=== PATIENT | female | born 1990 | race Caucasian/White ===

== ENCOUNTER 2019-03-15 14:55 | Inpatient (IN) | payer BC ==
[~2019-03-15] VITALS: Ht 172.7 cm; Wt 116.0 kg
[2019-03-15 15:17] VITALS: Ht 172.7 cm; Wt 116.0 kg
[2019-03-15 15:18] VITALS: BP 137/88; PULSE 88; RESP 18
--- NOTE | 2019-03-15 20:10 | HP ---
Date/Time of Note Date/Time of Note DATE: 03/15/19 TIME: 20:07 OB - History Hx of Present Chief Complaint: elevated BP in NST clinic Estimated Due Date: Apr 08, 2019 : 2 Para: 1 Spontaneous : 0 Therapeutic : 0 Care: Good Care Ultrasounds: Normal mid trimester US Obstetrical Complications: None Medical Complications: None Past Family/Social History * Past Medical, Surgical, Family and Obstetric Histories reviewed from chart. GBS Status: Positive OB Admission Exam Vital Signs Vital Signs Vital Signs Date Temp Pulse Resp B/P (MAP) Pulse Ox O2 O2 Flow FiO2 Time Delivery Rate 03/15/19 98.0 88 18 137/88 Room Air 15:18 (104) Physical Exam HEENT: WNL Heart: Rhythm Normal Lungs: Clear, Equal Abdomen: WNL Extremities: Normal Reflexes: Normal Heart Rate: 120's Accelerations: Accelerations Present Decelerations: No Decelerations Varibility: Moderate Last 72 hours Lab Results CBC & BMP 03/15/19 15:35 Liver Function Test 03/15/19 15:35 Alanine Aminotransferase (ALT/SGPT) 16 Albumin 3.5 Alkaline Phosphatase 66 Aspartate Amino Transf (AST/SGOT) 17 Direct Bilirubin 0.00 Total Protein 6.7 OB Assessment/Plan Reason for admission: other Other Assessment: R/O preeclampsia Plan: Other Other plan: Admit PIH panel 24 hour urine collection Monitor BP JUSTIN THOMAS MD Mar 15, 2019 20:10
--- NOTE | 2019-03-16 15:53 | QN ---
Documentation Comment No complaint Afebrile VSS Strip Reactive Await result of 24 hour urine JUSTIN THOMAS MD Mar 16, 2019 15:52
--- NOTE | 2019-03-17 20:41 | QN ---
Documentation Comment No complaint Afebrile VSS 24 hour urine protein 367 mg Strip Reactive Preeclampsia Plan: Repeat on 03/18/2019. JUSTIN THOMAS MD Mar 17, 2019 20:41
[2019-03-18] MEDS ORDERED: PNV11TAB PO (08:43)
[2019-03-18] MEDS ORDERED: OXYTOCIN 30 UNITS/LR 500 ML IV SCH ×2 (09:00→23:14)
[2019-03-18] MEDS ORDERED: CEFAZOLIN 2 GM/50 ML (PMX) 50 ML IVPB SCH (09:00)
[2019-03-18] MEDS ORDERED: CARBOPROST 250 MCG INJ IM PRN ×2 (09:00→23:30)
[2019-03-18] MEDS ORDERED: MISOPROSTOL 200 MCG TAB PR PRN ×2 (09:00→23:30)
[2019-03-18] MEDS ORDERED: METHYLERGONOVINE 0.2 MG INJ IM PRN (09:00)
[2019-03-18] MEDS ORDERED: OXYTOCIN 30 UNITS/LR 500 ML IV PRN ×2 (09:00→23:30)
[2019-03-18] MEDS: LACTATED RINGER'S 1,000 ML IV SCH ×2 (10:36→16:58)
[2019-03-18] MEDS ORDERED: AZITHROMYCIN 500MG/NS (PMX) 250 ML IV SCH (16:30)
[2019-03-18] MEDS ORDERED: morphine SULFATE/PF (10 MG/10 ML) INJ ONE (18:19)
[2019-03-18] MEDS ORDERED: ONDANSETRON 4 MG INJ ONE (18:19)
[2019-03-18] MEDS ORDERED: OXYTOCIN 10 UNIT INJ ONE (18:19)
[2019-03-18] MEDS ORDERED: FENTAnyl 50 MCG/ML VIAL ONE ×2 (19:01→19:15)
--- NOTE | 2019-03-18 20:12 | OPR ---
Operative Report Planned Procedure Procedure date Mar 18, 2019 Procedure(s) Repeat low transverse Performed by Justin Thomas MD Epic Cupid Analyst: ELYSE CERVANTES MD Anesthesiologist: FAZAL CORCORAN MD Pre-procedure diagnosis 37 weeks, previous and preeclampsia [id number] Anesthesia Type: [id number] spinal Post-Procedure Post-procedure diagnosis Same Findings Live Baby, Apgars 8 and 9 Estimated Blood Loss: other (700 ml) Specimen(s) Placenta Grafts/Implant(s) none Complication(s) none Pt Condition post procedure: stable Disposition: PACU Procedure Description After spinal anesthesia had been dosed and tested, the patient was placed supine on the Operating Room table and prepped and draped in the usual sterile fashion for a section. A Pfannenstiel incision was made through the abdomen and carried down to the level of the fascia. The fascia was incised transversely and then the rectus muscle was dissected off the fascia and split bluntly in the midline. The peritoneum was the entered bluntly. The bladder flap was created and then a low segment transverse incision was made with a knife on the uterus until the amniotic fluid was encountered. The incision was widened with bandage scissors. A hand was inserted elevating the vertex and then the head delivered with assistance of fundal pressure.. The nares and oropharynx were bulb suctioned, and the remainder of the infant was delivered out of the maternal abdomen. . The cord was doubly clamped and cut, and the infant handed off to the awaiting resuscitation team who was present for delivery. The placenta was then manually extracted and the interior uterus was cleaned with a dry lap sponge. The uterus was exteriorized, and the incision of the uterus closed with a running interlocking stitch of Monocryl suture. The uterus was replaced in the maternal abdomen. The abdomen was cleared of clots. The peritoneum was closed with 2-0 Vicryl. The fascia was closed with a running suture of #1 Vicryl suture meeting in the midline. The subcutaneous tissue was made hemostatic with Bovie cautery, and the skin approximated using noemi. The patient tolerated the procedure well. All sponge and instrument counts were correct. She was taken to the recovery room in stable condition. JUSTIN THOMAS MD Mar 18, 2019 20:12
[2019-03-18] MEDS ORDERED: NALOXONE (0.4 MG/ML) INJ IV PRN (20:30)
[2019-03-18] MEDS ORDERED: ONDANSETRON 4 MG INJ IV PRN (20:30)
[2019-03-18] MEDS ORDERED: DIPHENHYDRAMINE 50 MG INJ IV PRN (20:30)
[2019-03-18] MEDS ORDERED: morphine 2 MG INJ IV PRN (20:30)
[2019-03-18] MEDS ORDERED: LACTATED RINGER'S 1,000 ML IV SCH (23:14)
[2019-03-18] MEDS ORDERED: OXYCODONE/ACETAMINOPHEN (5/325) TAB PO PRN (23:30)
[2019-03-18] MEDS ORDERED: LANOLIN HPA 1 PKT TOP PRN (23:30)
[2019-03-19] VITALS: BP 132/63; PULSE 78; RESP 18
[2019-03-19 05:54] VITALS: BP 115/73; PULSE 83; RESP 20
[2019-03-19 07:30] VITALS: BP 113/72; PULSE 80; RESP 18
[2019-03-19] MEDS: SENNA/DOCUSATE NA (8.6MG/50MG) TAB PO SCH ×2 (11:31→21:35)
[2019-03-19] MEDS: KETOROLAC 30 MG INJ IV PRN ×2 (11:50→17:48)
[2019-03-19 12:00] VITALS: BP 110/72; PULSE 82; RESP 16
--- NOTE | 2019-03-19 15:01 | NSTRPT ---
NST Information Datetime Report Generated by CPN: 03/19/2019 15:01 Datetime: 03/15/2019 13:08 NST Information EGA: 36.4 Test Number: 7 Time on Monitor: 03/15/2019 13:44 Time off Monitor: 03/15/2019 14:10 NST Duration (Min): 26 Reason for NST: Other Reason for NST Other: Marginal cord insertion Test and Monitor Explained: Monitor Explained; Test Explained; Verbalized Understanding Pulse: 101 Resp: 18 SBP: 122 DBP: 82 Test Evaluation NST Interventions: Reposition Patient NST Interventions Other: RN had to hold US continuously to obtain tracing 1347 reposition pt to m aternal left Patient States Movement: Present Contraction Frequency: none FHR Baseline : 125 Variability: Moderate 6-25bpm Accelerations: 15X15 Decelerations: None FHR Category: Category I NST Results: Reactive Provider Notified: Dr Stringer _ Dr Gibran mehta BPs _ EAN Comments: To u/s EAN 25.7 cm BREECH EAN 03/13 was 18.9 [address] Delshad re serial BP readings-baseline BP 09/06 was 119/74. Repeat BPS in NST 129/84, 138/89, 156/86. Pt denies swelling, ARRIAZA, blurred vision, epigastric pain. Orders received to send pt to triage. Report to Amaya Almanza RN _ records _ preliminary US rep ort faxed to triage. Electronically Signed By E-Signature: with User ID: [id number] Datetime: 03/12/2019 09:09 NST Information EGA: 36.1 NST Duration (Min): 31 Datetime: 03/08/2019 09:22 NST Information EGA: 35.4 NST Duration (Min): 110 Datetime: 03/05/2019 09:20 NST Information EGA: 35.1 NST Duration (Min): 27 Datetime: 03/01/2019 09:31 NST Information EGA: 34.4 NST Duration (Min): 25 Datetime: 02/26/2019 08:40 NST Information EGA: 34.1 NST Duration (Min): 57 Datetime: 02/22/2019 10:20 NST Information EGA: 33.4 NST Duration (Min): 25
[2019-03-19 17:29] VITALS: BP 118/71; PULSE 94; RESP 18
[2019-03-19 19:45] VITALS: BP 125/75; PULSE 91; RESP 18
--- NOTE | 2019-03-19 20:15 | QN ---
Documentation Comment No complaint Afebrile VSS Abdomen soft ND POD #1 Stable Ambulate Advance diet. JUSTIN THOMAS MD Mar 19, 2019 20:15
[2019-03-19] MEDS: IBUPROFEN 800 MG TAB PO SCH (21:36)
[2019-03-20] MEDS: OXYCODONE/ACETAMINOPHEN (5/325) TAB PO PRN ×3 (01:41→22:32)
[2019-03-20 04:12] VITALS: BP 126/78; PULSE 81; RESP 18
[2019-03-20] MEDS: IBUPROFEN 800 MG TAB PO SCH ×3 (05:51→21:40)
[2019-03-20 08:30] VITALS: BP 121/75; PULSE 91; RESP 16
[2019-03-20] MEDS: SENNA/DOCUSATE NA (8.6MG/50MG) TAB PO SCH ×2 (09:02→21:40)
--- NOTE | 2019-03-20 09:25 | QN ---
Documentation Comment No complaint Afebrile VSS Abdomen soft Stable Continue present care JUSTIN THOMAS MD Mar 20, 2019 09:25
[2019-03-20 15:40] VITALS: BP 127/72; PULSE 87; RESP 18
[2019-03-20 20:15] VITALS: BP 118/81; PULSE 78; RESP 18
[2019-03-21 04:14] VITALS: BP 133/83; PULSE 73; RESP 18
[2019-03-21 08:00] VITALS: BP 142/88; PULSE 85; RESP 18
[2019-03-21] MEDS ORDERED: DIPHTH/TET/ACEL PERTUSS (ADULT) 0.5 ML VIAL IM* ONE (09:00)
[2019-03-21] MEDS: SENNA/DOCUSATE NA (8.6MG/50MG) TAB PO SCH ×2 (11:15→21:43)
--- NOTE | 2019-03-21 13:28 | QN ---
Documentation Comment No complaint Afebrile VSS Abdomen soft Incision intact POD #3 Stable Continue present care. JUSTIN THOMAS MD Mar 21, 2019 13:28
[2019-03-21 13:30] VITALS: BP 141/81; PULSE 89; RESP 18
[2019-03-21] MEDS: IBUPROFEN 800 MG TAB PO SCH ×3 (15:10→21:44)
[2019-03-21 16:00] VITALS: BP 122/88; PULSE 87; RESP 22
[2019-03-21 20:00] VITALS: BP 147/78; PULSE 78; RESP 19
[2019-03-21] MEDS ORDERED: MAGNESIUM HYDROXIDE 30ML CUP PO ONE (20:30)
[2019-03-22] VITALS: BP 131/81; PULSE 75; RESP 19
[2019-03-22 04:00] VITALS: BP 144/88; PULSE 70; RESP 18
[2019-03-22] MEDS: IBUPROFEN 800 MG TAB PO SCH ×2 (05:53→14:00)
[2019-03-22 08:40] VITALS: BP 133/82; PULSE 81; RESP 18
[2019-03-22] MEDS: SENNA/DOCUSATE NA (8.6MG/50MG) TAB PO SCH (09:55)
[2019-03-22 11:58] VITALS: BP 141/86; PULSE 67; RESP 18
--- NOTE | 2019-03-22 13:13 | DS ---
Date/Time of Note Date/Time of Note DATE: 03/22/19 TIME: 13:13 Obstetrical Discharge Record Final Diagnosis Final Diagnosis: Term delivered Section Section: Repeat Complications Preg induced Hypertension Condition on Discharge Physical Assessment Voiding: Yes Bowel Movement: Yes Breast: Soft, non-tender, Filling Fundus: Firm Abdomen and Incision: Incision intact Calf Tenderness: No Patient Condition: Stable JUSTIN THOMAS MD Mar 22, 2019 13:13
[2019-03-22 15:40] VITALS: BP 119/90; PULSE 77; RESP 16
--- NOTE | 2019-03-23 17:32 | DELSUM ---
Delivery Summary A-C Datetime Report Generated by CPN: 03/23/2019 17:32 DELIVERY PERSONNEL Personal Lines Underwriter: Campbell Deshawn MATERNAL INFORMATION Delivery Anesthesia: Spinal Medications in Delivery: SEE ANESTHESIA RECORD Delivery QBL (ml): 700 Placenta Cultured: No Maternal Complications: Other Other Maternal Complications: PREVIOUS C/SECTION X1, PIH LABOR SUMMARY EDC: 04/08/2019 00:00 No. Babies in Womb: 1 Attempted: No Labor Anesthesia: None LABOR INFORMATION Reason for Induction: Gest. HTN/PreEclam/Eclamp Group B Beta Strep: Positive Antibiotics # of Doses: 2 Antibiotics Time of Last Dose: 03/18/2019 18:17 Steroids Given: None Reason Steroids Not Administered: Not Applicable MEMBRANES Membranes Rupture Method: Artificial Rupture of Membranes: 03/18/2019 18:47 Length of Rupture (hr): 0.02 Amniotic Fluid Color: Clear Amniotic Fluid Amount: Large Amniotic Fluid Odor: None STAGES OF LABOR Stage 3 hr: 0 Stage 3 min: 1 CSECTION DELIVERY Primary Indication: Repeat Elective Secondary Indication: N/A CSection Urgency: Elective CSection Incidence: Repeat Labor: N/A Elective: Elective CSection Incision: Lower Uterine Transverse BABY A INFORMATION Infant Delivery Date/Time: 03/18/2019 18:48 Method of Delivery: Born in Route : No : N/A Forceps: N/A Vacuum Extraction: N/A Shoulder Dystocia : N/A SHOULDER DYSTOCIA BABY A Infant Delivery Date/Time: 03/18/2019 18:48 PRESENTATION/POSITION BABY A Presentation: Cephalic Cephalic Presentation: Vertex Vertex Position: Right Occipital Anterior Breech Presentation: N/A PLACENTA INFORMATION BABY A Placenta Delivery Time : 03/18/2019 18:49 Placenta Method of Delivery: Manual Removal Placenta Status: Delivered SCORES BABY A Heart Rate 1 min: >100 bpm Resp Effort 1 min: Good Cry Reflex Irritability 1 min: Cough/Sneeze/Pulls Away Muscle Tone 1 min: Active Motion Color 1 min: Blue/Pale Resuscitation Effort 1 min: Tactile Stimulation SCORE 1 MIN: 8 Heart Rate 5 min: >100 bpm Resp Effort 5 min: Good Cry Reflex Irritability 5 min: Cough/Sneeze/Pulls Away Muscle Tone 5 min: Active Motion Color 5 min: Body [place], Extremit Blue Resuscitation Effort 5 min: Tactile Stimulation SCORE 5 MIN: 9 INFORMATION BABY A Gestational Age at Delivery: 37.0 Gestational Status: Early Term- 37- 38.6 Weeks Infant Outcome : Liveborn, with signs of life Infant Condition : Stable Sex: Male IDENTIFICATION/MEDS BABY A ID Band Number: [id number] ID Band Location: Right Leg; Left Arm Sensor Applied: Yes Sensor Number: [id number] Sensor Location : Cord Clamp Vitamin K Given : Not Given Erythromycin Given: Not Given WEIGHT/LENGTH BABY A Birthweight (gm): 3405 Infant Weight (lb): 7 Infant Weight (oz): 8 Length (in): 19.75 Infant Length (cm): 50.17 CORD INFORMATION BABY A No. Cord Vessels: 3 Nuchal Cord : N/A Cord Blood Taken: Yes Banking/Donate Info: no Infant Suction: Mouth; Nose ASSESSMENT BABY A Infant Complications: None Physical Findings at Delivery: Within Normal Limits Infant Respirations: Appears Normal Veterinary Epidemiologist/ALS Called : No Care By: JUAN MANUEL Polanco RN/ KARIN Transferred To: Remains with Mother
== END 2019-03-22 17:32 | disposition home or self-care (01) | DRG 788 ==
LOC: OBT 14:55 → L-D 14:58 → OBT 15:29 → L-D 23:52 → PP1 03-18 22:17
PROVIDERS: ADMIT Obstetrics & Gynecology; ATTEND Obstetrics & Gynecology
PROC: 10D00Z1 Extraction of Products of Conception, Low, Open Approach (ICD-10-PCS; principal; 2019-03-18 17:30)
DX: O65.5 Obstructed labor due to abnormality of maternal pelvic organs (principal); O34.211 Maternal care for low transverse scar from previous cesarean delivery; O14.94 Unspecified pre-eclampsia, complicating childbirth; Z37.0 Single live birth; Z3A.37 37 weeks gestation of pregnancy
CPT/HCPCS: 80053; 81001; 81003; 82575; 84156; 84560; 85025; 85384; 85610; 85730; 86592; 86850; 86900; 86901; 87340; 99464; G0463; J0456; J0690; J1885; J2274; J2405; J2590; J3010; J7120